=== PATIENT | female | born 1975 | race Caucasian/White ===

== ENCOUNTER 2023-11-24 08:18 | Outpatient (REF) | payer OTHER, SELFPAY ==
--- NOTE | 2023-11-24 08:24 | ECG_ITS ---
Test Reason : QTC CHECK Blood Pressure : / mmHG Vent. Rate : 065 BPM Atrial Rate : 065 BPM P-R Int : 144 ms QRS Dur : 070 ms QT Int : 402 ms P-R-T Axes : 066 066 072 degrees QTc Int : 418 ms Normal sinus rhythm Normal ECG No previous ECGs available Referred By: Danae Toth Electronically Signed By:LISSY PETERSEN
[2023-11-24 08:43] LABS: MANUAL DIFF FLAG NO
[2023-11-24 08:53] LABS: Basophils Percent Auto 0.6 % (0-2); Eosinophils Absolute Auto 0.2 X10*3/uL (0.0-0.4); Eosinophils Percent Auto 2.4 % (0-4); Hematocrit 42.1 % (37.0-47.0); Hemoglobin 14.3 g/dl (12.0-16.0); Imm Gran Abs Auto 0.02 X10*3/uL (0.00-0.03); Imm Gran Pct Auto 0.3 % (0.0-0.4); Lymphocytes Absolute Auto 2.4 X10*3/uL (1.2-4.9); Lymphocytes Percent Auto 36.2 % (20-40); Mean Corpuscular Hemoglobin 30.2 pg (27.0-33.0); Mean Corpuscular Volume 88.8 fL (80.0-98.0); Mean Platelet Volume 9.9 fL (9.4-12.3); Monocytes Absolute Auto 0.4 X10*3/uL (0.1-1.2); Neutrophils Absolute Auto 3.6 x10*3/uL (2.0-8.3); Neutrophils Percent Auto 54.5 % (45-73); Platelet Count 259 X10*3/uL (160-400); Red Blood Count 4.74 X10*6/uL (4.20-5.50); Red Cell Distribution Width 12.5 % (11.0-16.0); White Blood Count 6.5 X10*3/uL (4.8-10.8)
[2023-11-24 09:26] LABS: Estimated Average Glucose 103 mg/dL; Hemoglobin A1c % 5.2 % (<6.0)
[2023-11-24 09:37] LABS: Erythrocyte Sedimentation Rate 5 MM/HR (0-20)
[2023-11-24 09:38] LABS: Parathyroid Hormone Intact 70.1 pg/mL (8.7-77.1)
[2023-11-24 09:44] LABS: Alanine Aminotransferase 17 U/L (0-31); Albumin Level 4.5 g/dL (3.5-5.0); Alkaline Phosphatase 57 U/L (39-117); Anion Gap 13 (12-20); Aspartate Amino Transferase 19 U/L (5-31); Bilirubin Total 0.6 mg/dL (0.0-1.0); Blood Urea Nitrogen 8 mg/dL (9-16); Carbon Dioxide 27 mmol/L (22-29); Chloride 106 mmol/L (96-108); Cholesterol 250 mg/dL (<200); Estimated Glomerular Filt Rate > 60; Glucose Fasting 114 mg/dL (60-99); HDL Cholesterol 82 mg/dL (>40); LDL Cholesterol Calculated 149 mg/dL (<100); Magnesium 2.2 mg/dL (1.6-2.6); Potassium 4.5 mmol/L (3.3-5.1); Sodium 141 mmol/L (135-145); Total Protein 7.6 g/dL (6.5-8.0); Triglycerides 99 mg/dL (<150)
[2023-11-24 09:49] LABS: Free T4 (Free Thyroxine) 0.93 ng/dL (0.71-1.85); Thyroid Stimulating Hormone 1.17 uIU/mL (0.32-4.0); Vitamin D 25-OH Total 42.5 ng/mL (>30)
[2023-11-24 10:06] LABS: Folate 8.5 ng/mL (> or = 4.0); Vitamin B12 301 pg/mL (200-900)
[2023-11-25 09:48] LABS: Triiodothyronine T3 Free 3.6 pg/mL (2.3-4.2); Triiodothyronine T3 Total 135 ng/dL (76-181)
[2023-11-25 09:57] LABS: Follicle Stimulating Hormone 149.3 mIU/mL
[2023-11-27 14:44] LABS: Calcium, Ionized 5.3 mg/dL (4.7-5.5)
== END 2023-11-24 08:19 | disposition home or self-care (01) ==
LOC: HO.LAB 08:18
PROVIDERS: Visit Provider Psychiatry & Neurology Psychiatry
DX: F31.81 Bipolar II disorder (principal); F45.42 Pain disorder with related psychological factors
CPT/HCPCS: 36415; 80053; 80061; 82306; 82330; 82607; 82746; 83001; 83002; 83036; 83735; 83970; 84439; 84443; 84480; 84481; 85025; 85652; 93005

== ENCOUNTER → 2023-11-24 08:24 | Outpatient (BNV) | payer OTHER, SELFPAY | PROVIDERS: Visit Provider Internal Medicine | DX: F31.81 Bipolar II disorder (principal); F43.10 Post-traumatic stress disorder, unspecified | CPT/HCPCS: 93010 ==

== ENCOUNTER 2023-12-01 09:00 | Outpatient (RCR) | payer OTHER, SELFPAY ==
[2023-11-14 11:52] VITALS: BP 126/78; PULSE 66; TEMP 37.1
[2023-11-14 11:56] VITALS: BMI 23.1
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
[2023-11-14 15:01] LABS: Amphetamine Screen Urine Not Detected (Not Detect); Barbiturates, Urine Not Detected (Not Detect); Benzodiazepines Screen Urine Not Detected (Not Detect); Cannabinoid Screen Urine POSITIVE (Not Detect); Cocaine Screen Urine Not Detected (Not Detect); Fentanyl, urine Not Detected (Not Detect); Opiate Screen Urine Not Detected (Not Detect); Phencyclidine Screen Urine Not Detected (Not Detect)
--- NOTE | 2023-11-14 15:19 | PC.NURSE ---
Patient stated she has an appointment with a new PCP on January 05, 2024 at 0830 at [facility] on [address], [place]. Reports she lost her PCP when she changed from commercial insurance to [employer].
--- NOTE | 2023-11-16 16:00 | HO.PHP ---
Client's case has been opened and reviewed in treatment team.
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
--- NOTE | 2023-11-20 10:16 | HO.PHP ---
[facility] staff member faxed a referral for OP therapy to [facility] for Bella Kraft. PHP staff member is awaiting a response back with the scheduled appointment dates and times.
--- NOTE | 2023-11-22 16:06 | HO.PHP ---
PHP staff member received a phone call from [facility] for Bella's OP therapy intake, which will be on November 28, 2023 at 2:30 PM via Telehealth.
--- NOTE | 2023-11-23 21:24 | P.PNPSP_ITS ---
Subjective Subjective Date of Service: 11/23/23 Reason For Visit: anxiety,depression Interim History: Patient seen for follow-up. Been up since 2am, reports delayed onset of sleep due to racing thoughts, disruptions in sleep during nava night due to chronic aches and pains occasionally in hips, prone to headaches, neck pain, and GI problems. Experiences nausea almost daily. Also nightmares, flashbacks can occur, will scratch inside of ears when distressed. She reports sometimes feeling so triggered and paranoid from PTSD sx will booby trap her room (eg putting shampoo bottle on door knob) in order to alert her if anyone enters. On occasion feeling so unreasonably phobic will booby trap a closet door. Sleep issues occurring since childhood. Mood today anxious. Would like to start treatment. Denies any alcohol or substance use or cravings. Denies SI, HI, AH, VH. Medication Compliance: Yes Side effects from medications: No Attending Groups: Yes Review of Systems Acute medical concerns: No Mental Status Exam Mental Status Exam Narrative: Alert, oriented, in no acute distress. Mood depressed, affect labile. Speech normal. Thought process scattered, linear, coherent. Thought content related to stressors, executive dysfunction, feeling overwhelmed, some transient helplessness and hopelessness, denies SI, intention or plan. Denies any aggressive ideation. No paranoia or delusional content elicited. No evidence of psychosis. Insight and judgment fair but adequate. Diagnostics Vital Signs (24Hr): BMI result Body Mass Index 23.1 Assessment & Plan Assessment & Plan (1) Bipolar II disorder with rapid cycling: Status: Acute Code(s): F31.81 - Bipolar II disorder (2) Post traumatic stress disorder (PTSD): Status: Acute Code(s): F43.10 - Post-traumatic stress disorder, unspecified (3) Cannabis abuse: Status: Acute Code(s): F12.10 - Cannabis abuse, uncomplicated (4) Methamphetamine use disorder, severe, in early remission, dependence: Status: Acute Code(s): F15.21 - Other stimulant dependence, in remission Plan start Abilify 2 mg qd start prazosin 1 mg BID continue other medications routine labs and EKG pending pt agrees to get these done continue to monitor Patient educated on: diagnosis, medication risk/benefits and substance abuse Informed Consent: understands Reason for contiued partial hosp. stay Substantial Risk for: inability to function and med/psych decompensation Certification I certify that partial hospital treatment is medically necessary due to the symptoms and problems resulting from the patient's mental illness and the failure to treat the patient at the partial hospital level of care would likely result in the patient requiring inpatient psychiatric care which could not be prevented at a less intensive level of care. Total time managing care of this patient today __30__ minutes. Discharge Plan Discharge Attending provider: Danae Toth Medications: New aripiprazole 2 mg tablet 2 mg PO BEDTIME Qty: 20 0RF aripiprazole 5 mg tablet 5 mg PO BEDTIME Qty: 20 0RF prazosin 2 mg capsule 2 mg PO BEDTIME Qty: 15 0RF Changed prazosin 1 mg capsule 1 mg PO QAM Qty: 15 0RF Discontinued bupropion HCl 75 mg tablet 75 mg PO QAM hydroxyzine HCl 10 mg tablet 10 mg PO BEDTIME melatonin 5 mg capsule 10 mg PO QPM Stand Alone Forms: Patient Portal Discharge page Patient Education: Bipolar Disorder (DC) Print Language: Angolan
--- NOTE | 2023-12-01 22:06 | P.PNPSP_ITS ---
Subjective Subjective Date of Service: 12/01/23 Reason For Visit: anxiety,depression Interim History: Patient seen for follow-up, anticipating discharge at the end of program today.? Overall I am feeling more stable . Reports mood stability has improved currently at a 5 or 6 out of 10, up from a 0-1 out of 10 upon admission to [facility]. Feels she is tolerating Abilify well, currently at 2 mg, will increase to 3.5 mg and will continue there until she meets up with her provider Teetee Lind next Monday. Anticipate further titration to 5 mg. She has been able to start haivng some regular sleep on some nights, some nights still difficult. She is at prazosin 1 mg BID, denies adverse effects. She tried repeating the dose Monday and did sleep better. WIll plan to continue at 1-2 mg qhs as well as 1 mg qam for anxiety. Reports being less ruminative and less depressed. Denies any acute issues or concerns. Medication compliant, medications well-tolerated. Denies any adverse effects.?Denies any hopelessness or SI. Denies thoughts of harming self or others at this time. Denies any aggressive ideation or HI. Denies any paranoia or AH or VH. Appetite, and energy stable. Medication Compliance: Yes Side effects from medications: No Attending Groups: Yes Review of Systems Acute medical concerns: No Mental Status Exam Mental Status Exam Narrative: Alert, oriented, in no acute distress. Mood less depressed, anxious. Affect calmer, subdued, less labile. Speech normal. Thought process scattered, linear, coherent. Thought content related to stressors, executive dysfunction, denies SI, intention or plan. Denies any aggressive ideation. No paranoia or delusional content elicited. No evidence of psychosis. Insight and judgment fair but adequate. Diagnostics Vital Signs (24Hr): BMI result Body Mass Index 23.1 Assessment & Plan Assessment & Plan (1) Bipolar II disorder with rapid cycling: Status: Acute Code(s): F31.81 - Bipolar II disorder (2) Attention-deficit hyperactivity disorder, unspecified type: Status: Acute Code(s): F90.9 - Attention-deficit hyperactivity disorder, unspecified type Assessment and Plan: Hx and clinical presentation strongly suggestive of ADHD combined type, executive dysfunction (3) Post traumatic stress disorder (PTSD): Status: Acute Code(s): F43.10 - Post-traumatic stress disorder, unspecified (4) Other mixed anxiety disorders: Status: Acute Code(s): F41.3 - Other mixed anxiety disorders (5) Methamphetamine use disorder, severe, in early remission, dependence: Status: Acute Code(s): F15.21 - Other stimulant dependence, in remission (6) Cannabis abuse: Status: Acute Code(s): F12.10 - Cannabis abuse, uncomplicated Assessment and Plan: in early remission Plan Discharge from [facility] increase Abilify 3.5 mg qd (1/2 tablet 2 mg + 1/2 tablet 5 mg) continue prazosin 1 mg qAM continue prazosin 1-2 mg qhs continue other medications defer to outpatient provider patient has an appointment with Teetee Lind next week Patient educated on: diagnosis, medication risk/benefits and substance abuse Informed Consent: understands Reason for contiued partial hosp. stay Substantial Risk for: stable for discharge Certification I certify that partial hospital treatment is medically necessary due to the symptoms and problems resulting from the patient's mental illness and the failure to treat the patient at the partial hospital level of care would likely result in the patient requiring inpatient psychiatric care which could not be prevented at a less intensive level of care. Total time managing care of this patient today _30___ minutes. Discharge Plan Discharge Attending provider: Danae Toth Medications: New aripiprazole 2 mg tablet 2 mg PO BEDTIME Qty: 20 0RF aripiprazole 5 mg tablet 5 mg PO BEDTIME Qty: 20 0RF prazosin 2 mg capsule 2 mg PO BEDTIME Qty: 15 0RF Changed prazosin 1 mg capsule 1 mg PO QAM Qty: 15 0RF Discontinued bupropion HCl 75 mg tablet 75 mg PO QAM hydroxyzine HCl 10 mg tablet 10 mg PO BEDTIME melatonin 5 mg capsule 10 mg PO QPM Stand Alone Forms: Patient Portal Discharge page Patient Education: Bipolar Disorder (DC) Print Language: Malawian
== END 2023-12-01 23:59 | disposition home or self-care (01) ==
LOC: HO.PHPA 09:00
PROVIDERS: Visit Provider Psychiatry & Neurology Psychiatry
DX: F31.81 Bipolar II disorder (principal); F43.10 Post-traumatic stress disorder, unspecified; F12.10 Cannabis abuse, uncomplicated; F15.21 Other stimulant dependence, in remission
CPT/HCPCS: 80307; 90791; 90853

== ENCOUNTER → 2023-12-01 09:00 | Outpatient (BNV) | payer OTHER, SELFPAY | PROVIDERS: Visit Provider Psychiatry & Neurology Psychiatry | DX: F31.81 Bipolar II disorder (principal); F90.9 Attention-deficit hyperactivity disorder, unspecified type; F43.10 Post-traumatic stress disorder, unspecified; F41.3 Other mixed anxiety disorders; F15.21 Other stimulant dependence, in remission; F12.10 Cannabis abuse, uncomplicated | CPT/HCPCS: 90832; 90837; 99213 ==